=== PATIENT | male | born 1980 | race Caucasian/White ===

== ENCOUNTER 2017-09-09 10:54 | Emergency (ER) | payer SELFPAY ==
[~2017-09-09] VITALS: Ht 172.7 cm; Wt 102.1 kg
[2017-09-09] MEDS ORDERED: KETOROLAC 30 MG/ML VIAL IVP ONE (11:45)
[2017-09-09] MEDS ORDERED: NS IV 1000 ML 1,000 ML IV SCH (11:45)
--- NOTE | 2017-09-09 11:45 | ED GU-Male ---
General Chief Complaint: -Male Stated Complaint: KIDNEY PAINS Nursing Triage Note: MICKEY HAS HISTORY OF KIDNEY STONES AND IS HAVING SIMILAR PAIN ON RIGHT LOWER SIDE OF HIS BODY/ABDOMEN. PAIN HAS BEEN GOING ON SINCE 08/22/17. PAIN WORSENED THIS MORNING. Source: patient Exam Limitations: no limitations History of Present Illness Time seen by provider: 11:43 Initial Comments To ER with right flank pain that became worse than usual at between 2 and 3 a.m. this morning. A history kidney stones. He was seen at the emergency room in [place] middle of August for this pain. Timing/Duration: constant Severity/Quality: moderate Location: right flank Radiation: none Activities at Onset: none Associated Symptoms: dysuria Allergies and Home Medications Allergies Coded Allergies: No Known Drug Allergies (Unverified , 09/09/17) Home Medications Ciprofloxacin HCl 250 Mg Tablet, 250 MG PO BID, #14 Prescribed by: MARIA EUGENIA COLLAZO on 09/09/17 1231 Hydrocodone/Acetaminophen 1 Each Tablet, 1 EACH PO Q4H PRN for PAIN-MODERATE TO SEVERE, #30 Prescribed by: MARIA EUGENIA COLLAZO on 09/09/17 1231 Tamsulosin HCl 0.4 Mg Cap, 0.4 MG PO DAILY, #14 Prescribed by: MARIA EUGENIA COLLAZO on 09/09/17 1231 Constitutional: see HPI, No chills, No fever EENTM: see HPI Respiratory: no symptoms reported Cardiovascular: no symptoms reported Genitourinary: see HPI, flank pain Musculoskeletal: no symptoms reported Skin: no symptoms reported Psychiatric/Neurological: No Symptoms Reported Endocrine: No Symptoms Reported Past Jreslhp-Gsyars-Hzvdfr Hx Patient Social History Alcohol Use: Denies Use Recreational Drug Use: No Smoking Status: Current Everyday Smoker Type Used: Cigarettes 2nd Hand Smoke Exposure: Yes Recent Foreign Travel: No Contact w/Someone Who Travel: No Recent Infectious Disease Expo: No Recent Hopitalizations: No Physical Abuse: No Sexual Abuse: No Seasonal Allergies Seasonal Allergies: No Surgeries History of Surgeries: No Psychosocial Suicide Risk Score: 0 Physical Exam Vital Signs Vital Sign - Last 12Hours 09/09/17 11:01 Temp 98.0 Pulse 115 Resp 24 B/P (MAP) 135/101 (112) Pulse Ox 95 O2 Delivery Room Air Capillary Refill : Less Than 3 Seconds General Appearance: WD/WN, no apparent distress HEENT: PERRL/EOMI, normal ENT inspection Neck: non-tender, full range of motion Respiratory: normal breath sounds, no respiratory distress, no accessory muscle use Gastrointestinal: normal bowel sounds, non tender, soft Neurologic/Psychiatric: alert, normal mood/affect, oriented x 3 Skin: normal color, warm/dry Progress/Results/Core Measures Suspected Sepsis Recent Fever Within 48 Hours: No Infection Criteria Present: None New/Unexplained Altered Menta: No Sepsis Screen: No Definite Risk Sepsis Diagnosis: SIRS Temperature:98.0 Pulse: 115 Respiratory Rate: 24 Laboratory Tests 09/09/17 11:11: White Blood Count 16.2H Blood Pressure 135 /101 Mean: 112 Laboratory Tests 09/09/17 11:11: Creatinine 1.75H, Platelet Count 294, Total Bilirubin 0.7 Results/Orders Lab Results Laboratory Tests Test 09/09/17 11:11 09/09/17 11:46 Range/Units White Blood Count 16.2 H 4.3-11.0 10^3/uL Red Blood Count 5.23 4.35-5.85 10^6/uL Hemoglobin 16.9 13.3-17.7 G/DL Hematocrit 46 40-54 % Mean Corpuscular Volume 89 80-99 FL Mean Corpuscular Hemoglobin 32 25-34 PG Mean Corpuscular Hemoglobin Concent 37 H 32-36 G/DL Red Cell Distribution Width 12.2 10.0-14.5 % Platelet Count 294 130-400 10^3/uL Mean Platelet Volume 10.1 7.4-10.4 FL Neutrophils (%) (Auto) 68 42-75 % Lymphocytes (%) (Auto) 22 12-44 % Monocytes (%) (Auto) 9 0-12 % Eosinophils (%) (Auto) 1 0-10 % Basophils (%) (Auto) 0 0-10 % Neutrophils # (Auto) 10.9 H 1.8-7.8 X 10^3 Lymphocytes # (Auto) 3.6 1.0-4.0 X 10^3 Monocytes # (Auto) 1.5 H 0.0-1.0 X 10^3 Eosinophils # (Auto) 0.2 0.0-0.3 10^3/uL Basophils # (Auto) 0.0 0.0-0.1 10^3/uL Neutrophils % (Manual) 68 % Lymphocytes % (Manual) 11 % Monocytes % (Manual) 4 % Eosinophils % (Manual) 0 % Basophils % (Manual) 0 % Band Neutrophils 0 % Reactive Lymphocytes 17 % Blood Morphology Comment NORMAL Sodium Level 137 135-145 MMOL/L Potassium Level 3.8 3.6-5.0 MMOL/L Chloride Level 102 98-107 MMOL/L Carbon Dioxide Level 21 21-32 MMOL/L Anion Gap 14 5-14 MMOL/L Blood Urea Nitrogen 26 H 7-18 MG/DL Creatinine 1.75 H 0.60-1.30 MG/DL Estimat Glomerular Filtration Rate 45 BUN/Creatinine Ratio 15 Glucose Level 109 H 70-105 MG/DL Calcium Level 10.3 H 8.5-10.1 MG/DL Total Bilirubin 0.7 0.1-1.0 MG/DL Aspartate Amino Transf (AST/SGOT) 19 5-34 U/L Alanine Aminotransferase (ALT/SGPT) 40 0-55 U/L Alkaline Phosphatase 66 40-136 U/L Total Protein 8.6 H 6.4-8.2 GM/DL Albumin 4.7 H 3.2-4.5 GM/DL Urine Color YELLOW Urine Clarity CLEAR Urine pH 6 5-9 Urine Specific [place] 1.025 H 1.016-1.022 Urine Protein 1+ H NEGATIVE Urine Glucose (UA) NEGATIVE NEGATIVE Urine Ketones 3+ H NEGATIVE Urine Nitrite NEGATIVE NEGATIVE Urine Bilirubin 1+ H NEGATIVE Urine Urobilinogen 1 NORMAL MG/DL Urine Leukocyte Esterase 1+ H NEGATIVE Urine RBC (Auto) 4+ H NEGATIVE Urine RBC 5-10 H /HPF Urine WBC 0-2 /HPF Urine Squamous Epithelial Cells 0-2 /HPF Urine Crystals NONE /LPF Urine Bacteria NEGATIVE /HPF Urine Casts NONE /LPF Urine Mucus LARGE H /LPF Urine Culture Indicated NO Urine Opiates Screen NEGATIVE NEGATIVE Urine Oxycodone Screen POSITIVE H NEGATIVE Urine Methadone Screen NEGATIVE NEGATIVE Urine Propoxyphene Screen NEGATIVE NEGATIVE Urine Barbiturates Screen NEGATIVE NEGATIVE Ur Tricyclic Antidepressants Screen NEGATIVE NEGATIVE Urine Phencyclidine Screen NEGATIVE NEGATIVE Urine Amphetamines Screen NEGATIVE NEGATIVE Urine Methamphetamines Screen NEGATIVE NEGATIVE Urine Benzodiazepines Screen NEGATIVE NEGATIVE Urine Cocaine Screen NEGATIVE NEGATIVE Urine Cannabinoids Screen NEGATIVE NEGATIVE My Orders Orders - MARIA EUGENIA COLLAZO SWAGING MACHINE OPERATOR Cbc With Automated Diff (09/09/17 11:41) Comprehensive Metabolic Panel (09/09/17 11:41) Ua Culture If Indicated (09/09/17 11:41) Saline Lock/Iv-Start (09/09/17 11:41) Saline Lock/Iv-Start (09/09/17 11:41) Ketorolac Injection (Toradol Injection) (09/09/17 11:45) Ct Abd/Pelvis Wo(Kidney Stone) (09/09/17 11:41) Ns Iv 1000 Ml (Sodium Chloride 0.9%) (09/09/17 11:45) Drug Screen Stat (Urine) (09/09/17 11:45) Manual Differential (09/09/17 11:11) Abdomen/Kub 1[place] (09/09/17 12:28) Ceftriaxone Injection (Rocephin Injectio (09/09/17 12:30) Medications Given in ED Current Medications Medications Dose Ordered Sig/Kapil Route Start Time Stop Time Status Last Admin Dose Admin Ketorolac Tromethamine 30 mg ONCE ONCE IVP 09/09/17 11:45 09/09/17 11:46 DC 09/09/17 11:50 30 MG Vital Signs/I&O Vital Sign - Last 12Hours 09/09/17 11:01 Temp 98.0 Pulse 115 Resp 24 B/P (MAP) 135/101 (112) Pulse Ox 95 O2 Delivery Room Air Capillary Refill : Less Than 3 Seconds Blood Pressure Mean: 112 Diagnostic Imaging Diagonstic Imaging: CT Comments NAME: MOMO MCKEON [facility] REC#: [id number] PT STATUS: REG ER : 1980 PHYSICIAN: MARIA EUGENIA COLLAZO APRN ADMIT DATE: 09/09/17/ER Draft Date of Exam:09/09/17 CT ABD/PELVIS WO(KIDNEY STONE) PROCEDURE: CT urinary tract, rule out kidney stone. TECHNIQUE: Multiple contiguous axial images were obtained through the abdomen and pelvis without the use of intravenous contrast. INDICATION: Right flank pain. FINDINGS: Stone with a Hounsfield unit density 640 measures 4.9 x 4.1 mm in the right ureter at the level of the L3-L4 disc space and results in moderate upstream hydroureteronephrosis. There are no additional opaque kidney stones and there is no perinephric fluid collection. Distal ureters decompressed. The urinary bladder unremarkable. Left kidney unobstructed and nonacute. The remaining abdominal pelvic solid and hollow viscera were unremarkable. IMPRESSION: Right ureteral calculus density and dimensions above results in moderate upstream hydroureteronephrosis. No other significant finding. Dictated on workstation # [id number] Dict: 09/09/17 1232 Trans: 09/09/17 1254 [facility] [id number] Interpreted by: MICHELLE BOB Electronically signed by: Departure Impression Impression: Primary Impression: Right ureteral stone Disposition: HOME, SELF-CARE Condition: Stable Departure-Patient Inst. Decision time for Depature: 12:29 Referrals: NO,LOCAL PHYSICIAN (PCP) Primary Care Physician JULIÁN RIVERA MD Patient Instructions: Kidney Stones (DC) Add. Discharge Instructions: 1. Return to ER for any concerns such as intolerable pain or fevers 2. Call Dr. Rivera today to make an appointment to be seen. You may need lithotripsy to have this stone broken into smaller pieces so that it will pass 3. Medication as directed All discharge instructions reviewed with patient and/or family. Voiced understanding. Scripts Ciprofloxacin HCl (Cipro) 250 Mg Tablet 250 MG PO BID, #14 TAB Prov: MARIA EUGENIA COLLAZO APRN 09/09/17 Hydrocodone/Acetaminophen ([place] 5-325 Tablet) 1 Each Tablet 1 EACH PO Q4H Y for PAIN-MODERATE TO SEVERE, #30 TAB Prov: MARIA EUGENIA COLLAZO APRN 09/09/17 Tamsulosin HCl (Flomax) 0.4 Mg Cap 0.4 MG PO DAILY, #14 CAP Prov: MARIA EUGENIA COLLAZO APRN 09/09/17 Copy Copies To 1: JULIÁN RIVERA MD, PETER J APRN Sep 09, 2017 11:45
[2017-09-09 11:58] LABS: KETONES,URINE 3+ (NEGATIVE); LEUKOCYTE ESTERASE ,URINE 1+ (NEGATIVE); NITRITE,URINE NEGATIVE (NEGATIVE); PH,URINE 6 (5-9); PROTEIN,URINE 1+ (NEGATIVE); UROBILINOGEN,URINE 1 MG/DL (NORMAL)
[2017-09-09 12:03] LABS: BASOPHILS % (AUTO) 0 % (0-10); EOSINOPHILS # (AUTO) 0.2 10^3/uL (0.0-0.3); EOSINOPHILS % (AUTO) 1 % (0-10); LYMPHOCYTES # (AUTO) 3.6 X 10^3 (1.0-4.0); LYMPHOCYTES % (AUTO) 22 % (12-44); MEAN CORPUSCULAR HEMOGLOBIN 32 PG (25-34); MEAN CORPUSCULAR HGB CONC 37 G/DL (32-36); MEAN CORPUSCULAR VOLUME 89 FL (80-99); MEAN PLATELET VOLUME 10.1 FL (7.4-10.4); MONOCYTES # (AUTO) 1.5 X 10^3 (0.0-1.0); MONOCYTES % (AUTO) 9 % (0-12); NEUTROPHILS # (AUTO) 10.9 X 10^3 (1.8-7.8); NEUTROPHILS % (AUTO) 68 % (42-75); PLATELET COUNT 294 10^3/uL (130-400); RED BLOOD COUNT 5.23 10^6/uL (4.35-5.85); RED CELL DISTRIBUTION WIDTH 12.2 % (10.0-14.5); WHITE BLOOD COUNT 16.2 10^3/uL (4.3-11.0)
[2017-09-09 12:09] LABS: BILIRUBIN,URINE 1+ (NEGATIVE)
[2017-09-09 12:10] LABS: SQUAMOUS EPITHELIAL CELL,UR 0-2 /HPF; WBC,URINE 0-2 /HPF
[2017-09-09 12:16] LABS: ALBUMIN 4.7 GM/DL (3.2-4.5); BILIRUBIN,TOTAL 0.7 MG/DL (0.1-1.0); CALCIUM 10.3 MG/DL (8.5-10.1); CREATININE SERUM 1.75 MG/DL (0.60-1.30); POTASSIUM 3.8 MMOL/L (3.6-5.0); TOTAL PROTEIN 8.6 GM/DL (6.4-8.2)
[2017-09-09 12:25] LABS: BAND NEUTROPHILS 0 %; BASOPHILS % (MANUAL) 0 %; EOSINOPHILS % (MANUAL) 0 %; LYMPHOCYTES % (MANUAL) 11 %; NEUTROPHILS % (MANUAL) 68 %; REACTIVE LYMPHOCYTES 17 %
[2017-09-09] MEDS ORDERED: cefTRIAXone INJECTION 1,000 MG in NS (IVPB) 50 ML IV ONE (12:30)
[2017-09-09] MEDS ORDERED: HYDR-757 PO (12:31)
[2017-09-09] MEDS ORDERED: TAMS0.4C98 PO (12:31)
[2017-09-09] MEDS ORDERED: CIPR-226 PO (12:31)
--- NOTE | 2017-09-09 12:54 | Diagnostic Imaging Report ---
PROCEDURE: CT urinary tract, rule out kidney stone. TECHNIQUE: Multiple contiguous axial images were obtained through the abdomen and pelvis without the use of intravenous contrast. INDICATION: Right flank pain. FINDINGS: Stone with a Hounsfield unit density 640 measures 4.9 x 4.1 mm in the right ureter at the level of the L3-L4 disc space and results in moderate upstream hydroureteronephrosis. There are no additional opaque kidney stones and there is no perinephric fluid collection. Distal ureters decompressed. The urinary bladder unremarkable. Left kidney unobstructed and nonacute. The remaining abdominal pelvic solid and hollow viscera were unremarkable. IMPRESSION: Right ureteral calculus density and dimensions above results in moderate upstream hydroureteronephrosis. No other significant finding. Dictated by: Dictated on workstation # [id number]
[2017-09-09] MEDS ORDERED: morphine INJ 10 MG/ML 1ML (SYR OR VIAL) IVP ONE (13:15)
[2017-09-09 13:21] VITALS: BP 135/101
--- NOTE | 2017-09-09 13:24 | Diagnostic Imaging Report ---
INDICATION: Right-sided flank pain. KUB obtained at 1:15 p.m. The abdominal bowel gas pattern is unremarkable. There is moderate stool in the colon. There are calcifications overlying the pelvis on each side which are compatible with phleboliths. There is a calcification to the right of the L3-L4 level measuring about 6 mm. This corresponds to the ureteral stone visualized on CT. IMPRESSION: A 6-mm calcification to the right of L3-L4, which appears to correspond to the ureteral stone visualized on CT earlier today. There are phleboliths in the pelvis. Bowel gas pattern is unremarkable. Dictated by: Dictated on workstation # [id number]
== END 2017-09-09 13:23 | disposition home or self-care (01) ==
LOC: ER 10:58
DX: N20.1 Calculus of ureter (principal); F17.210 Nicotine dependence, cigarettes, uncomplicated; Z87.442 Personal history of urinary calculi
CPT/HCPCS: 36415; 74000; 74176; 80053; 80306; 81000; 85007; 85027

== ENCOUNTER → 2017-09-28 | Outpatient (CLI) | payer OTHER ==
[~2017-09-28] MED LIST: CIPR-226 PO; HYDR-757 PO; TAMS0.4C98 PO
--- NOTE | 2017-09-28 10:43 | Diagnostic Imaging Report ---
INDICATION: Disability determination. COMPARISON: None. FINDINGS: Two views of the left knee were obtained. No acute fracture, malalignment, or osseous destructive process is seen. The joint spaces are preserved and the articular margins appear smooth. The soft tissues appear unremarkable. IMPRESSION: Negative left knee. Dictated by: Dictated on workstation # [id number]
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
== END ==
LOC: RAD 09:35
PROVIDERS: ATTEND Surgery
DX: Z02.71 Encounter for disability determination (principal); M46.96 Unspecified inflammatory spondylopathy, lumbar region
CPT/HCPCS: 72100; 73560

== ENCOUNTER 2017-10-04 11:58 | Emergency (ER) | payer SELFPAY ==
[~2017-10-04] VITALS: Ht 172.7 cm; Wt 102.1 kg
[2017-10-04 12:43] LABS: BILIRUBIN,URINE NEGATIVE (NEGATIVE); KETONES,URINE NEGATIVE (NEGATIVE); LEUKOCYTE ESTERASE ,URINE 1+ (NEGATIVE); NITRITE,URINE NEGATIVE (NEGATIVE); PH,URINE 5 (5-9); PROTEIN,URINE NEGATIVE (NEGATIVE); UROBILINOGEN,URINE NORMAL (NORMAL)
[2017-10-04 12:58] LABS: SQUAMOUS EPITHELIAL CELL,UR 0-2 /HPF; WBC,URINE 0-2 /HPF
[2017-10-04 12:59] LABS: CALCIUM OXALATE CRYSTALS,UR RARE /LPF
[2017-10-04] MEDS ORDERED: KETOROLAC 30 MG/ML VIAL IVP STA (13:02)
[2017-10-04] MEDS ORDERED: LACTATED RINGERS 1,000 ML IV ONE (13:02)
[2017-10-04 13:50] LABS: BASOPHILS % (AUTO) 0 % (0-10); EOSINOPHILS % (AUTO) 0 % (0-10); LYMPHOCYTES # (AUTO) 2.1 X 10^3 (1.0-4.0); LYMPHOCYTES % (AUTO) 17 % (12-44); MEAN CORPUSCULAR HEMOGLOBIN 32 PG (25-34); MEAN CORPUSCULAR HGB CONC 35 G/DL (32-36); MEAN CORPUSCULAR VOLUME 90 FL (80-99); MEAN PLATELET VOLUME 9.4 FL (7.4-10.4); MONOCYTES # (AUTO) 1.1 X 10^3 (0.0-1.0); MONOCYTES % (AUTO) 9 % (0-12); NEUTROPHILS # (AUTO) 8.9 X 10^3 (1.8-7.8); NEUTROPHILS % (AUTO) 73 % (42-75); PLATELET COUNT 257 10^3/uL (130-400); RED BLOOD COUNT 4.85 10^6/uL (4.35-5.85); RED CELL DISTRIBUTION WIDTH 12.6 % (10.0-14.5); WHITE BLOOD COUNT 12.1 10^3/uL (4.3-11.0)
--- NOTE | 2017-10-04 13:56 | ED GU-Male ---
General Chief Complaint: -Male Stated Complaint: KIDNEY STONES Nursing Triage Note: PT PRESENTS TO ER WITH COMPLAINT OF KIDNEY STONES. STATES HE WAS HERE A MONTH AGO FOR KIDNEY STONES AND THEY INSTRUCTED HIM TO SEE A SPECIALIST, BUT DOES NOT HAVE THE MONEY. STATED HIS PAIN STARTED 10/03/17. IS NOT PASSING BLOOD AND DOES NOT THINK HE HAS PASSED ANY STONES. ALSO COMPLAINING OF NAUSEA AND VOMITING. Source: patient History of Present Illness Time seen by provider: 12:40 Initial Comments PT ARRIVES VIA POV C/O "KIDNEY STONES" C/O RIGHT FLANK PAIN SINCE August PT STATES THIS IS HIS 3RD ER VISIT FOR THIS PROBLEM--WENT TO [place] ER IN AUGUST. PT'S ONLY OTHER VISIT HERE WAS 09/09/17 AND WAS REFERRED TO DR. RIVERA AT THAT TIME HAS BEEN REFERRED TO UROLOGIST, BUT HAS NOT FOLLOWED UP--STATES HE CANNOT AFFORD TO BE SEEN IN OFFICE--"NO JOB AND NO INSURANCE" PT STATES HE HAS BEEN OUT OF HIS MEDICATIONS FOR A COUPLE OF WEEKS STATES PAIN STARTED AGAIN YESTERDAY--HAS NOT TAKEN ANYTHING FOR PAIN + NAUSEA/VOMITING NO PROBLEMS URINATING AND NO BLOOD IN URINE NO FEVER NO PCP Allergies and Home Medications Allergies Coded Allergies: No Known Drug Allergies (Unverified , 09/09/17) Home Medications Ciprofloxacin HCl 250 Mg Tablet, 250 MG PO BID, #14 Prescribed by: MARIA EUGENIA COLLAZO on 09/09/17 1231 Ciprofloxacin HCl 500 Mg Tablet, 500 MG PO BID, #20 Prescribed by: KYLIE VAZQUEZ on 10/04/17 1417 Hydrocodone/Acetaminophen 1 Each Tablet, 1 EACH PO Q4H PRN for PAIN-MODERATE TO SEVERE, #30 Prescribed by: MARIA EUGENIA COLLAZO on 09/09/17 1231 Ketorolac Tromethamine 10 Mg Tablet, 10 MG PO Q6H, #15 Prescribed by: KYLIE VAZQUEZ on 10/04/17 1417 Ondansetron 4 Mg Tab.rapdis, 4 MG PO Q4H, #10 Prescribed by: KYLIE VAZQUEZ on 10/04/17 1417 Tamsulosin HCl 0.4 Mg Cap, 0.4 MG PO DAILY, #14 Prescribed by: MARIA EUGENIA COLLAZO on 09/09/17 1231 Tamsulosin HCl 0.4 Mg Cap, 0.4 MG PO DAILY, #10 Prescribed by: KYLIE VAZQUEZ on 10/04/17 1417 Constitutional: no symptoms reported Respiratory: no symptoms reported Cardiovascular: no symptoms reported Gastrointestinal: see HPI, nausea, vomiting Genitourinary: see HPI, flank pain Musculoskeletal: see HPI, back pain Skin: no symptoms reported Psychiatric/Neurological: No Symptoms Reported Endocrine: No Symptoms Reported Hematologic/Lymphatic: No Symptoms Reported Past Doxtsey-Uwqcbk-Ylpoir Hx Patient Social History Alcohol Use: Denies Use Recreational Drug Use: No Smoking Status: Current Everyday Smoker Type Used: Cigarettes 2nd Hand Smoke Exposure: Yes Recent Foreign Travel: No Contact w/Someone Who Travel: No Recent Infectious Disease Expo: No Recent Hopitalizations: No Physical Abuse: No Sexual Abuse: No Seasonal Allergies Seasonal Allergies: No Surgeries History of Surgeries: No Respiratory History of Respiratory Disorde: No Cardiovascular History of Cardiac Disorders: No Neurological History of Neurological Disord: No Genitourinary History of Genitourinary Disor: Yes Genitourinary Disorders: Kidney Stones Gastrointestinal History of Gastrointestinal Di: No Musculoskeletal History of Musculoskeletal Dis: No Endocrine History of Endocrine Disorders: No HEENT History of HEENT Disorders: No Cancer History of Cancer: No Psychosocial History of Psychiatric Problem: No Suicide Risk Score: 0 Integumentary History of Skin or Integumenta: No Blood Transfusions History of Blood Disorders: No Physical Exam Vital Signs Vital Sign - Last 12Hours 10/04/17 12:16 Temp 97.7 Pulse 105 Resp 20 B/P (MAP) 153/101 (118) Pulse Ox 98 O2 Delivery Room Air Capillary Refill : Less Than 3 Seconds General Appearance: WD/WN, no apparent distress, other (WALKS AND MOVES WITHOUT DIFFICULTY--NONCHALANT. DOES NOT APPEAR TO BE IN ANY DISCOMFORT WHATSOEVER. 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, no motor/sensory deficits, alert, normal mood/affect, oriented x 3 Skin: normal color, warm/dry, tattoos/piercings (MULTIPLE TATTOOS AND PIERCINGS ) Progress/Results/Core Measures Suspected Sepsis Recent Fever Within 48 Hours: No Infection Criteria Present: None New/Unexplained Altered Menta: No Sepsis Screen: No Definite Risk Sepsis Diagnosis: SIRS Temperature:97.7 Pulse: 105 Respiratory Rate: 20 Laboratory Tests 10/04/17 13:43: White Blood Count 12.1H Blood Pressure 153 /101 Mean: 118 Laboratory Tests 10/04/17 13:43: Creatinine 1.54H, Platelet Count 257, Total Bilirubin 0.4 Results/Orders Lab Results Laboratory Tests Test 10/04/17 12:16 10/04/17 13:43 Range/Units Urine Color YELLOW Urine Clarity CLEAR Urine pH 5 5-9 Urine Specific [place] 1.030 H 1.016-1.022 Urine Protein NEGATIVE NEGATIVE Urine Glucose (UA) NEGATIVE NEGATIVE Urine Ketones NEGATIVE NEGATIVE Urine Nitrite NEGATIVE NEGATIVE Urine Bilirubin NEGATIVE NEGATIVE Urine Urobilinogen NORMAL NORMAL MG/DL Urine Leukocyte Esterase 1+ H NEGATIVE Urine RBC (Auto) 3+ H NEGATIVE Urine RBC 2-5 H /HPF Urine WBC 0-2 /HPF Urine Squamous Epithelial Cells 0-2 /HPF Urine Crystals PRESENT H /LPF Urine Calcium Oxalate Crystals RARE H /LPF Urine Bacteria TRACE /HPF Urine Casts NONE /LPF Urine Mucus SMALL H /LPF Urine Culture Indicated YES White Blood Count 12.1 H 4.3-11.0 10^3/uL Red Blood Count 4.85 4.35-5.85 10^6/uL Hemoglobin 15.5 13.3-17.7 G/DL Hematocrit 44 40-54 % Mean Corpuscular Volume 90 80-99 FL Mean Corpuscular Hemoglobin 32 25-34 PG Mean Corpuscular Hemoglobin Concent 35 32-36 G/DL Red Cell Distribution Width 12.6 10.0-14.5 % Platelet Count 257 130-400 10^3/uL Mean Platelet Volume 9.4 7.4-10.4 FL Neutrophils (%) (Auto) 73 42-75 % Lymphocytes (%) (Auto) 17 12-44 % Monocytes (%) (Auto) 9 0-12 % Eosinophils (%) (Auto) 0 0-10 % Basophils (%) (Auto) 0 0-10 % Neutrophils # (Auto) 8.9 H 1.8-7.8 X 10^3 Lymphocytes # (Auto) 2.1 1.0-4.0 X 10^3 Monocytes # (Auto) 1.1 H 0.0-1.0 X 10^3 Eosinophils # (Auto) 0.0 0.0-0.3 10^3/uL Basophils # (Auto) 0.0 0.0-0.1 10^3/uL Sodium Level 142 135-145 MMOL/L Potassium Level 4.0 3.6-5.0 MMOL/L Chloride Level 106 98-107 MMOL/L Carbon Dioxide Level 22 21-32 MMOL/L Anion Gap 14 5-14 MMOL/L Blood Urea Nitrogen 15 7-18 MG/DL Creatinine 1.54 H 0.60-1.30 MG/DL Estimat Glomerular Filtration Rate 52 BUN/Creatinine Ratio 10 Glucose Level 102 70-105 MG/DL Calcium Level 9.5 8.5-10.1 MG/DL Total Bilirubin 0.4 0.1-1.0 MG/DL Aspartate Amino Transf (AST/SGOT) 16 5-34 U/L Alanine Aminotransferase (ALT/SGPT) 32 0-55 U/L Alkaline Phosphatase 59 40-136 U/L Total Protein 7.3 6.4-8.2 GM/DL Albumin 4.2 3.2-4.5 GM/DL Amylase Level 79 25-125 U/L Lipase 12 8-78 U/L My Orders Orders - KYLIE VAZQUEZ DO Ct Abd/Pelvis Wo(Kidney Stone) (10/04/17 13:02) Amylase (10/04/17 13:02) Cbc With Automated Diff (10/04/17 13:02) Comprehensive Metabolic Panel (10/04/17 13:02) Lipase (10/04/17 13:02) Acute Abd Series (10/04/17 13:02) Ketorolac Injection (Toradol Injection) (10/04/17 13:02) Saline Lock/Iv-Start (10/04/17 13:02) Lactated Ringers (Lr 1000 Ml Iv Solution (10/04/17 13:02) Drug Screen Stat (Urine) (10/04/17 14:11) Medications Given in ED Current Medications Medications Dose Ordered Sig/Kapil Route Start Time Stop Time Status Last Admin Dose Admin Lactated Ringer's 1,000 ml @ 0 mls/hr Q0M ONCE IV 10/04/17 13:02 10/04/17 13:10 DC 10/04/17 13:40 1,000 MLS/HR Vital Signs/I&O Vital Sign - Last 12Hours 10/04/17 10/04/17 12:16 15:02 Temp 97.7 98.0 Pulse 105 90 Resp 20 20 B/P (MAP) 153/101 (118) Pulse Ox 98 99 O2 Delivery Room Air Capillary Refill : Less Than 3 Seconds Blood Pressure Mean: 118 Progress Note : Progress Note PAIN EASED AT TIME OF DISMISSAL PT ADVISED OF IMPORTANCE OF FOLLOW UP WITH UROLOGIST, AND POSSIBLE NEED FOR LITHOTRIPSY. Diagnostic Imaging Comments CT ABDOMEN/PELVIS--8 MM RIGHT MID-URETERAL STONE, WITH MOD RIGHT HYDRONEPHROSIS ACUTE ABDOMEN XRAYS--DENSITY OVER RIGHT SACRAL AREA PER RADIOLOGIST REPORTS Reviewed: Reviewed by Me Departure Impression Impression: Primary Impression: Right ureteral calculus Disposition: HOME, SELF-CARE Condition: Stable Departure-Patient Inst. Referrals: NO,LOCAL PHYSICIAN (PCP) Primary Care Physician JULIÁN RIVERA MD Patient Instructions: Kidney Stones (DC) Add. Discharge Instructions: LOTS OF CLEAR LIQUIDS FOLLOW UP WITH DR. RIVERA THIS WEEK FOR FURTHER CARE, RETURN TO ER IF WORSE All discharge instructions reviewed with patient and/or family. Voiced understanding. Scripts Ondansetron (Zofran Odt) 4 Mg Tab.rapdis 4 MG PO Q4H for Nausea/Vomiting, #10 TAB Prov: PAVAN VAZQUEZA K DO 10/04/17 Ketorolac Tromethamine (Ketorolac Tromethamine) 10 Mg Tablet 10 MG PO Q6H for Pain, #15 TAB Prov: PAVAN VAZQUEZA K DO 10/04/17 Tamsulosin HCl (Flomax) 0.4 Mg Cap 0.4 MG PO DAILY, #10 CAP Prov: KYLIE VAZQUEZ K DO 10/04/17 Ciprofloxacin HCl (Cipro) 500 Mg Tablet 500 MG PO BID, #20 TAB Prov: TAYLORPAVANA K DO 10/04/17 TAYLORKYLIE K DO Oct 04, 2017 13:55
[2017-10-04 14:07] LABS: ALBUMIN 4.2 GM/DL (3.2-4.5); BILIRUBIN,TOTAL 0.4 MG/DL (0.1-1.0); CALCIUM 9.5 MG/DL (8.5-10.1); CREATININE SERUM 1.54 MG/DL (0.60-1.30); TOTAL PROTEIN 7.3 GM/DL (6.4-8.2)
[2017-10-04] MEDS ORDERED: KETO10TA PO (14:17)
[2017-10-04] MEDS ORDERED: ONDA4TAB8 PO (14:17)
[2017-10-04] MEDS ORDERED: TAMS0.4C98 PO (14:17)
[2017-10-04] MEDS ORDERED: CIPR-225 PO (14:17)
--- NOTE | 2017-10-04 14:22 | Diagnostic Imaging Report ---
PROCEDURE: CT urinary tract, rule out kidney stone. TECHNIQUE: Multiple contiguous axial images were obtained through the abdomen and pelvis without the use of intravenous contrast. INDICATION: Right flank pain. COMPARISON: 09/09/2017. FINDINGS: The lung bases appear clear. The liver demonstrate diffuse hepatic steatosis with suggestion of fatty sparing near the gallbladder bed. There is no calcified gallstone. The spleen is not enlarged. The adrenal glands and pancreas appear unremarkable. There is moderate right hydronephrosis with hydroureter seen. An 8-mm stone in mid ureter at the upper sacrum level is seen. No other urinary tract stones are identified. This is possibly the same stone seen on study from 09/09/2017. The degree of hydronephrosis has not changed from the previous exam. No bladder stone seen. There is no significant free fluid or fluid collection in the abdomen or pelvis. The abdominal aorta is normal in caliber. No significant para-aortic lymph node seen. The osseous structures appear grossly unremarkable. IMPRESSION: 1. There is persistent moderate right hydronephrosis secondary to an 8-mm mid ureteric stone at the upper sacrum level. 2. Hepatic steatosis. Dictated by: Dictated on workstation # [id number]
--- NOTE | 2017-10-04 14:39 | Diagnostic Imaging Report ---
Acute abdominal series. INDICATION: Right flank pain. FINDINGS: PA view of the chest demonstrate clear lungs with overall low lung volumes, however. The heart size is at the upper limits of normal. No effusion or pneumothorax. The mediastinum and ziyad appear unremarkable. Upright and supine views of the abdomen demonstrate no pneumoperitoneum and no dilated bowel loops to suggest bowel obstruction. Moderate amount of fecal material seen in the colon. A poorly visualized density projecting over the mid right aspect of the sacrum ala possibly correlates with the mid right ureteric obstructive stone seen on CT. IMPRESSION: Questionable faint density projecting over the mid right sacrum ala may correlate with the mid to right ureteric stone seen on CT scan. Dictated by: Dictated on workstation # [id number]
[2017-10-04 15:02] VITALS: BP 140/90
== END 2017-10-04 15:04 | disposition home or self-care (01) ==
LOC: EDUNIT# 11:58 → ER 12:00
DX: N20.1 Calculus of ureter (principal); F17.210 Nicotine dependence, cigarettes, uncomplicated
CPT/HCPCS: 36415; 74022; 74176; 80053; 81000; 82150; 83690; 85025; 87088

== ENCOUNTER 2023-08-12 12:45 | Outpatient (CLI) | payer SELFPAY ==
[~2023-08-12 12:45] MED LIST changes: +CIPR-225 PO; +HYDR-4226 PO; -HYDR-757 PO; +KETO10TA PO; +ONDA4TAB8 PO; -TAMS0.4C98 PO; +TMSL.4C PO
== END 2023-08-12 13:05 ==
LOC: SLEEP 12:45
PROVIDERS: ATTEND Nurse Practitioner
DX: G47.33 Obstructive sleep apnea (adult) (pediatric) (principal); G43.009 Migraine without aura, not intractable, without status migrainosus
CPT/HCPCS: G0399